=== PATIENT | female | born 1935 | race Caucasian/White ===

== ENCOUNTER 2022-07-12 19:17 | Emergency (ER) | payer MEDICARE, OTHER ==
[~2022-07-12] VITALS: Ht 162.6 cm; Wt 83.9 kg
[~2022-07-12 19:17] MED LIST: ASPIRIN81 MG PO; ATENOLOL50 MG PO; ATORVASTATIN CA10 MG PO; NIFEDIPINE10 MG PO; PANTOPRAZOLE SO20 MG PO; SUCRALFATE1 GM PO; VASOTEC10 MG PO
[2022-07-12] MEDS ORDERED: DEXAMETHASONE SOD PHOS 10 MG/1 ML VIAL IM ONE (19:45)
[2022-07-12] MEDS ORDERED: HYDROCODONE/APAP 10MG-325MG TAB PO ONE (19:45)
[2022-07-12] MEDS ORDERED: DOXYCYCLINE HY100 MG PO (22:19)
[2022-07-12] MEDS ORDERED: METHOCARBAMOL750 MG PO (22:19)
[2022-07-12] MEDS ORDERED: MEDROL4 M2 PO (22:19)
== END 2022-07-12 22:47 | disposition home or self-care (01) ==
LOC: ER 19:29
DX: M54.50 Low back pain, unspecified (principal); M54.6 Pain in thoracic spine; M25.552 Pain in left hip; M25.551 Pain in right hip; W18.39XA Other fall on same level, initial encounter; Y93.01 Activity, walking, marching and hiking; Y92.531 Health care provider office as the place of occurrence of the external cause
CPT/HCPCS: 72128; 72131; 72192; 99284; J1100